=== PATIENT | female | born 1935 | race Caucasian/White ===

== ENCOUNTER 2019-02-09 12:37 | Inpatient (IN) | payer MEDICARE ==
[2019-02-09] MEDS ORDERED: Fentanyl 100 MCG/2 ML VIAL ONE ×5 (13:19→18:07)
[2019-02-09] MEDS ORDERED: Ketorolac Tromethamine 60 MG/2 ML VIAL ONE (13:19)
[2019-02-09 13:40] LABS: Hemoglobin 12.1 g/dL (12.0-16.0); Mean Corpuscular HGB CONC 33.2 g/dL (32.0-36.0); Mean Platelet Volume 8.6 fL (7.4-10.4); Platelet Count 137 thou/uL (130-400); RBC Distribution Width 11.9 % (11.5-14.5); Red Blood Cell (RBC) Count 3.47 mill/uL (4.20-5.40); White Blood Cell (WBC) Count 10.6 thou/uL (4.8-10.8)
[2019-02-09 13:41] LABS: #Basophils 0.1 thou/uL (0.0-0.2); #Eosinphils 0.1 thou/uL (0.0-0.7); #Lymphocytes 1.4 thou/uL (1.20-3.40); #Monocytes 0.4 thou/uL (0.11-0.59); #Neutrophils 8.6 thou/uL (1.40-6.50); %Basophils 0.5 % (0.0-1.0); %Eosinophils 1.2 % (0.0-10.0); %Lymphocytes 13.2 % (21.0-51.0); %Monocytes 3.9 % (0.0-10.0); %Neutrophils 81.2 % (42.0-75.0)
[2019-02-09 13:49] LABS: PTT 30.7 SEC (22.9-36.1); Prothrombin Time 13.3 SEC (12.0-14.7)
[2019-02-09 13:58] LABS: MDiff Complete? YES; Macrocytosis SLIGHT = 6-15 cells (100X) (0-5/hpf); Platelet Morphology Comment Appears Adequate
[2019-02-09 14:04] LABS: ALT (SGPT) 16 U/L (8-55); AST (SGOT) 18 U/L (5-34); Albumin 3.7 g/dL (3.4-4.8); Alkaline Phosphatase 81 U/L (40-150); Anion Gap 12 mmol/L (10-20); BUN (Urea Nitrogen) 20 mg/dL (9.8-20.1); Bilirubin, Total 0.4 mg/dL (0.2-1.2); Calc. Creatinine Clearance 0 mL/min (70-130); Carbon Dioxide 25 mmol/L (23-31); Chloride 106 mmol/L (98-107); Estimated GFR-MDRD 64; Globulin 2.7 g/dL (2.4-3.5); Glucose 100 mg/dL (83-110); Potassium 4.2 mmol/L (3.5-5.1); Protein, Total 6.4 g/dL (6.0-8.3); Sodium 139 mmol/L (136-145)
--- NOTE | 2019-02-09 14:21 | RAD ---
AP view of the pelvis INDICATION: Fall with left hip pain COMPARISON: None. FINDINGS: Bones: There is a subcapital left femoral neck fracture with mild varus malalignment. There is mild m edial displacement of the femoral head fracture component. There is diffuse osteopenia. Hips: There is mild osteoarthrosis of the left and right hip SI joints and symphysis pubis: Normal appearing. Intrapelvic contents: Within normal limits. IMPRESSION: Left subcapital femoral neck fracture with mild displacement
--- NOTE | 2019-02-09 14:22 | RAD ---
Radiograph left hip 2 views: DATE: 02/09/2019 Time: 1:36 PM HISTORY: 83-year-old female with traumatic left hip pain after fall FINDINGS: There is a subcapital femoral neck fracture with at least half bone width superior lateral displaceme nt of distal fragment. No dislocation. IMPRESSION: Acute, traumatic, displaced subcapital left femoral neck fracture.
[2019-02-09] MEDS ORDERED: CEFAZOLIN 2 GM in Premix Bag 1 BAG IVPB SCH (15:00)
[2019-02-09] MEDS ORDERED: Neomycin-Polymyxin 1 ML AMP ONE (15:13)
[2019-02-09] MEDS ORDERED: Phenylephrine HCL 10 MG/ML VIAL ONE (15:30)
--- NOTE | 2019-02-09 15:52 | RAD ---
LEFT FINGER TWO VIEWS: 02/09/19 HISTORY: Left finger pain. FINDINGS/IMPRESSION: Degenerative changes are seen in the PIP and DIP joints. No fracture, dislocation, or bony destructio n is identified. POS: [facility]
--- NOTE | 2019-02-09 16:30 | HP ---
REQUESTING PHYSICIAN: Dr. Lucero. ATTENDING SURGEON: Dr. Palencia. CONSULTATIONS: Orthopedics, Dr. Blue. 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 She denied loss of consciousness. She was brought to the emergency department, where she underwent evaluation and examination and was noted to have a left hip fracture, at which time we were asked to evaluate the patient for admission and obtain Orthopedic consultations. ALLERGIES: NONE. CURRENT MEDICATIONS: Propranolol, carvedilol, benazepril, duloxetine, Catapres, fentanyl patch, and Vicodin. 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 PAST SURGICAL HISTORY: Appendectomy, cholecystectomy, and mastectomy on the right. SOCIAL HISTORY: The patient smokes approximately half a pack of cigarettes per day. Denies drug use. Rare alcohol use. REVIEW OF SYSTEMS: A 10-point review of systems is negative as otherwise stated. PHYSICAL EXAMINATION: VITAL SIGNS: Blood pressure 161/79, heart rate 58, respirations 17, oxygen saturation 99% on 2 L via nasal cannula, and temperature is 97.8. GENERAL: The patient is resting comfortably in bed. She is awake, alert, and oriented x3. [place] Coma Scale is 15. HEENT: Head is normocephalic. Eyes, extraocular motion intact. PERRLA bilaterally. Ears are atraumatic without discharge. Nose is atraumatic without discharge. Oropharynx is clear. NECK: Nontender. Trachea is midline. No JVD. CHEST: Clear to auscultation with good inspiratory and expiratory effort. HEART: Regular rate and rhythm. ABDOMEN: Soft, flat, and nontender with active bowel sounds. PELVIS: Stable with tenderness to palpation to the left hip consistent with her fracture. EXTREMITIES: Neurovascularly intact x4. LABORATORY FINDINGS: White blood cell count 10.6, hemoglobin 12.1, hematocrit 36.5, and platelets 137. Sodium 139, potassium 4.2, chloride 106, CO2 of 25, BUN 20, creatinine 0.85, and glucose 100. LFTs are unremarkable. Troponin is less than 0.010. PT 13, INR 1.0, and PTT 31. RADIOGRAPHIC REPORTS: AP pelvis shows a left subcapital femoral neck fracture with mild displacement, views of the left hip again show a left subcapital femoral neck fracture, views of the left index finger show multilevel joint arthritis. ASSESSMENT/PLAN: 1. Status post ground level fall. 2. Left subcapital hip fracture. 3. History of hypertension. 4. Chronic pain medication use. PLAN: Plan will be to admit the patient to the surgical floor. Currently, the plan is hopefully to take her to the operating room from the emergency department to undergo her operative intervention with Orthopedics. The patient will remain n.p.o., have pain management, pulmonary toilet, gastritis, mechanical VTE prophylaxis. Postoperatively, we will have her begin working with Physical and Occupational Therapy. The evaluation, examination, laboratory, and radiographic findings will be discussed with Dr. Palencia after this dictation. Job ID: [id number]
[2019-02-09] MEDS ORDERED: Ondansetron ODT 4 MG TAB PO PRN (17:21)
[2019-02-09] MEDS ORDERED: hydrALAZINE 20 MG/ML VIAL SLOW IVP PRN (17:21)
[2019-02-09] MEDS ORDERED: HYDROcodone/Acetaminophen 10/325 mg Tablet PO PRN ×2 (17:21)
[2019-02-09] MEDS ORDERED: Dextrose 50% Abboject 50 ML SYRINGE SLOW IVP PRN (17:21)
[2019-02-09] MEDS ORDERED: Ondansetron PF 4 MG/2 ML Vial IVP PRN (17:21)
[2019-02-09] MEDS ORDERED: Morphine 4 MG/ML VIAL SLOW IVP PRN (17:21)
[2019-02-09] MEDS ORDERED: Cyclobenzaprine 10 MG TAB PO PRN (17:21)
[2019-02-09] MEDS ORDERED: Morphine 2 MG/ML SYRINGE SLOW IVP PRN (17:21)
[2019-02-09] MEDS ORDERED: Dextrose 5% in Water 1,000 ML IV PRN (17:21)
[2019-02-09] MEDS ORDERED: Sodium Chloride 0.9% 1,000 ML IV SCH (17:21)
[2019-02-09] MEDS ORDERED: Lidocaine 1% PF 5 ML VIAL ONE (17:35)
[2019-02-09] MEDS ORDERED: Glycopyrrolate 0.2 MG/ML 5 ML SYRINGE ONE (17:35)
[2019-02-09] MEDS ORDERED: Rocuronium Bromide 10 MG/ML (10ML VIAL) ONE (17:35)
[2019-02-09] MEDS ORDERED: PROPOFOL 200 MG/20 ML VIAL ONE (17:35)
[2019-02-09] MEDS ORDERED: Promethazine HCl 25 MG/ML VIAL IM PRN (17:42)
[2019-02-09] MEDS ORDERED: Ondansetron HCl/PF 4 MG/2 ML Vial IVP PRN (17:42)
[2019-02-09] MEDS ORDERED: Promethazine HCl 25 MG/ML VIAL SLOW IVP PRN (17:42)
[2019-02-09] MEDS ORDERED: PACU-Morphine 4MG/ML VIAL SLOW IVP PRN (17:42)
[2019-02-09] MEDS ORDERED: HYDROmorphone 2 MG/ML VIAL SLOW IVP PRN (17:42)
[2019-02-09] MEDS ORDERED: Acetaminophen 500 MG TAB PO SCH (18:00)
--- NOTE | 2019-02-09 19:14 | RAD ---
AP VIEW OF THE PELVIS: 02/09/19 INDICATION: Status post hemiarthroplasty. COMPARISON: Prior exam dated 02/09/19 at 1:34 p.m. IMPRESSION: There has been interval placement of a left hip endoprosthesis. No additional fracture is evident. IMPRESSION: Left hip endoprosthesis. POS: [facility]
--- NOTE | 2019-02-09 19:15 | RAD ---
CROSS-TABLE LATERAL OF THE LEFT HIP: 02/09/19 INDICATION: Status post hemiarthroplasty. COMPARISON: Left hip radiograph dated 02/09/19. IMPRESSION: There has been interval placement of a left hip endoprosthesis. Prosthetic component projects in the expected position. POS: [facility]
[2019-02-09] MEDS: HYDROcodone/Acetaminophen 7.5/325 mg Tablet PO SCH (20:48)
[2019-02-09] MEDS: Ketorolac Tromethamine 30 MG/ML VIAL IVP SCH ×2 (20:52→23:40)
[2019-02-09] MEDS ORDERED: Carvedilol 25 MG TAB PO SCH (21:00)
[2019-02-09] MEDS ORDERED: fentaNYL 50 mcg/hour Patch TD SCH (21:00)
[2019-02-09] MEDS ORDERED: Famotidine 20 MG TAB PO SCH (21:00)
[2019-02-09] MEDS ORDERED: cloNIDine 0.3 MG TAB PO SCH (21:00)
--- NOTE | 2019-02-09 21:06 | CON ---
DATE OF CONSULTATION: 02/09/2019 CHIEF COMPLAINT: Left hip pain. HISTORY OF PRESENT ILLNESS: Ms. Remy is an 83-year-old female who has fallen. She lost her balance at home after she became dizzy. She landed on her left side. She denies loss of consciousness. She does not use a cane or walker. She was at her normal baseline health. She remains very active. She had immediate pain in the hip and was unable to ambulate. X-rays were obtained after arrival to the emergency department, which demonstrated a femoral neck fracture. IMAGES: X-rays of the left hip demonstrate a displaced acute left femoral neck fracture of the left femur. PAST MEDICAL HISTORY: Hypertension. PAST SURGICAL HISTORY: Mastectomy and cholecystectomy. ALLERGIES: NO KNOWN DRUG ALLERGIES. MEDICATIONS: The patient takes hypertension medication, otherwise no active medications. SOCIAL HISTORY: The patient denies tobacco, alcohol, or drug use. She lives independently near her family. FAMILY MEDICAL HISTORY: Noncontributory. PHYSICAL EXAMINATION: GENERAL: The patient is alert and oriented, in no apparent distress, breathing comfortably. ABDOMEN: Soft, nontender, nondistended. MUSCULOSKELETAL: The patient's left lower extremity has shortening and pain with motion. She is neurovascularly intact in the foot and ankle. She has a palpable pulse. No skin lacerations. Upper extremities are atraumatic. IMPRESSION: Left femoral neck fracture in an elderly female. PLAN: At this point, the patient will need to go to the operating room. We will plan for hemiarthroplasty of the left hip to restore the ability to mobilize and prevent complications of prolonged bedrest. Risks of surgery have been reviewed, which do include dislocation, nerve or vascular injury, pain, scarring, bleeding, and others. She will have preoperative antibiotics. She will have pain control. She will have DVT prophylaxis. N.p.o. until after surgery. Job ID: [id number]
--- NOTE | 2019-02-09 23:15 | OP ---
DATE OF PROCEDURE: 02/09/2019 PROCEDURE PERFORMED: Left hip hemiarthroplasty. PREOPERATIVE DIAGNOSIS: Left femoral neck fracture. POSTOPERATIVE DIAGNOSIS: Left femoral neck fracture. COMPLICATIONS: None. ESTIMATED BLOOD LOSS: 200 mL. DRAWING IN HAND: Tabby Randall PA-C IMPLANTS: DePuy basic press-fit stem size 7, size 45 bipolar shell with a +5 femoral head. INDICATIONS: Ms. Remy is an 83-year-old who fell and fractured the left femoral neck. She was indicated for hemiarthroplasty of the left hip to restore mobility and provide pain relief. Risks have been reviewed in detail. She elected to proceed with the operation. DESCRIPTION OF PROCEDURE: Ms. Remy was identified in the preoperative holding area. Her correct extremity was marked. She was carried to the operating room. She was positioned supine. General anesthesia was induced. A multidisciplinary time-out was performed. The left lower extremity was prepped and draped in sterile fashion. We began the procedure with a posterior approach to the hip. We dissected down through the subcutaneous tissues to the fascia, which was opened. This allowed exposure of the short external rotators of the hip. These were subperiosteally divided from the proximal femur. At this point, we exposed the underlying hip joint capsule. This was incised. We then removed the broken femoral head and neck fragments. We performed a new osteotomy of the femoral neck. We then proceeded to prepare the femoral canal. We used an rasp to enter the canal. We then lateralized. Next, we rasped up to a size 7. We then broached from a size 3 to a size 7. This gave a good fit. We trialed on our size 3 broach. A +5 femoral head was appropriate for length. We removed our trial components. We placed our final components. We again reduced the hip. Again, with full range of motion, the patient had a stable hip with equal leg lengths. We thoroughly irrigated with copious lavage. We then closed with #5 Ethibond suture in the posterior capsule and piriformis tendon. This was followed by fascial closure and layered closure. A sterile dressing was applied. The patient was taken to the recovery room in good condition at that point without complication. Job ID: [id number]
[2019-02-09] MEDS: CEFAZOLIN 2 GM in Premix Bag 1 BAG IVPB SCH (23:38)
[2019-02-09] MEDS: Acetaminophen 325 MG TAB PO SCH (23:38)
--- NOTE | 2019-02-10 00:30 | PRG ---
DATE OF SERVICE: 02/09/2019 SUBJECTIVE: I was seen Ms. Remy, 83-year-old female on today evening round.The patient is status post ground level fall with left hip fracture with history of hypertension and arthritis. The patient just come back from the OR with left hip fracture ORIF. The patient reports pain from the left hip 6/10 to 7/10. No sign of acute respiratory distress. The patient is alert and awake. Vital signs stable. The patient reports she has been using [place] 7.5 mg t.i.d. and fentanyl 50 every 72 hours. We also reconcile all of her home medication including hypertension medication, and pain medication. PLAN: To put back on a home p.o. med and continue to follow up with blood pressure and pain control. The patient will be working with PT/OT tomorrow, placement in rehabilitation facility will be initiated. Job ID: [id number] MTDD
[2019-02-10] MEDS ORDERED: Carvedilol 25 MG TAB PO SCH ×2 (00:36→09:00)
[2019-02-10] MEDS ORDERED: Sodium Chloride 0.9% 500 ML IVPB SCH (01:00)
[2019-02-10 01:48] VITALS: BMI 25.9
[2019-02-10] MEDS: Ketorolac Tromethamine 30 MG/ML VIAL IVP SCH (05:51)
[2019-02-10] MEDS: Acetaminophen 325 MG TAB PO SCH ×2 (05:51→13:14)
[2019-02-10] MEDS: CEFAZOLIN 2 GM in Premix Bag 1 BAG IVPB SCH (06:47)
[2019-02-10 06:57] LABS: Anion Gap 10 mmol/L (10-20); BUN (Urea Nitrogen) 19 mg/dL (9.8-20.1); Calc. Creatinine Clearance 55 mL/min (70-130); Calcium 7.9 mg/dL (7.8-10.44); Carbon Dioxide 24 mmol/L (23-31); Chloride 106 mmol/L (98-107); Estimated GFR-MDRD 66; Glucose 100 mg/dL (83-110); Magnesium 1.7 mg/dL (1.6-2.6); Potassium 4.1 mmol/L (3.5-5.1); Sodium 136 mmol/L (136-145)
[2019-02-10] MEDS ORDERED: Hydrocortisone Sod Succ/PF 100 mg/2 ml Vial IVP SCH (07:00)
[2019-02-10] MEDS ORDERED: Ibuprofen 600 MG TAB PO PRN (08:12)
[2019-02-10 08:38] LABS: #Eosinphils 0.1 thou/uL (0.0-0.7); #Lymphocytes 1.2 thou/uL (1.20-3.40); #Monocytes 0.6 thou/uL (0.11-0.59); #Neutrophils 5.1 thou/uL (1.40-6.50); %Basophils 0.3 % (0.0-1.0); %Eosinophils 1.1 % (0.0-10.0); %Lymphocytes 17.3 % (21.0-51.0); %Monocytes 8.4 % (0.0-10.0); %Neutrophils 72.9 % (42.0-75.0); Hemoglobin 9.1 g/dL (12.0-16.0); MDiff Complete? YES; Mean Corpuscular HGB CONC 33.2 g/dL (32.0-36.0); Mean Corpuscular Hemoglobin 34.5 pg (27.0-31.0); Mean Platelet Volume 8.7 fL (7.4-10.4); Platelet Count 103 thou/uL (130-400); Platelet Morphology Comment Appears Decreased; Polychromasia SLIGHT = 2-3 cells (100X) (0-2/hpf); RBC Distribution Width 11.8 % (11.5-14.5); Red Blood Cell (RBC) Count 2.65 mill/uL (4.20-5.40)
[2019-02-10] MEDS: DULoxetine 30 MG CAP PO SCH (08:47)
[2019-02-10] MEDS: cloNIDine 0.3 MG TAB PO SCH ×2 (08:47→23:06)
[2019-02-10] MEDS: Carvedilol 25 MG TAB PO SCH ×2 (08:48→21:02)
[2019-02-10] MEDS: Lisinopril 20 MG TAB PO SCH (08:49)
[2019-02-10] MEDS: HYDROcodone/Acetaminophen 7.5/325 mg Tablet PO SCH ×3 (08:56→21:02)
[2019-02-10] MEDS ORDERED: DULoxetine 60 MG CAP PO SCH (09:00)
[2019-02-10] MEDS ORDERED: Lisinopril 20 MG TAB PO SCH (09:00)
[2019-02-10] MEDS ORDERED: fentaNYL 50 mcg/hour Patch TD SCH (09:00)
[2019-02-10] MEDS: Magnesium 2 GM/50 ML 2 GM in Premix Bag 1 BAG IVPB SCH ×2 (11:15→11:17)
--- NOTE | 2019-02-10 13:08 | PRG ---
DATE OF SERVICE: 02/10/2019 This is Nixon Reynolds PA-C dictating a report for Denilson Palencia DO. SUBJECTIVE: The patient is hospital day 2 postop day 1, status post ground level fall, which the patient sustained a left femoral neck fracture yesterday. She was able to undergo her operative procedure, specifically a left hip hemiarthroplasty, which she has tolerated well. Overnight, she had no issues. This morning, she is tolerating a diet and she has begun working with Physical and Occupational Therapy. The patient is a long-term chronic pain medication user and we resumed her base regimen and added some additional pain medications to help with her acute injury. OBJECTIVE: VITAL SIGNS: Temperature is 98.9, heart rate 66, blood pressure 119/71, respirations 16, oxygen saturation 92% on room air. GENERAL: The patient is resting comfortably, sitting at the side of bed. She is working with a therapist. At the time of our visit she is awake, alert, and oriented x3. [place] Coma Scale is 15. HEENT: Unremarkable. LUNGS: Clear to auscultation with good inspiratory and expiratory effort. HEART: Regular rate and rhythm. ABDOMEN: Soft, flat, nontender with active bowel sounds. EXTREMITIES: Neurovascularly intact x4. Postop dressing is clean, dry, and intact. LABORATORY FINDINGS: White blood cell count 7.0, hemoglobin 9.1, hematocrit 27.6, platelets 103. Sodium 136, potassium 4.1, chloride 106, CO2 of 24, BUN 19, creatinine 0.83, glucose 100, magnesium 1.7, phosphorus 4.0, cortisol is 15.2. There are no radiographs reviewed this morning. ASSESSMENT/PLAN: 1. Status post ground level fall. 2. Status post left femoral neck fracture, status post left hip hemiarthroplasty. 3. History of chronic pain medication use. 4. History of hypertension. PLAN: Plan will be to continue supportive care, physical and occupational therapy and work on placement with the patient, case workers and family. The patient was evaluated this morning with Dr. Palencia during rounds. Job ID: [id number]
[2019-02-10] MEDS ORDERED: Acetaminophen 500 MG TAB PO PRN (16:09)
[2019-02-10] MEDS ORDERED: HYDROcodone/Acetaminophen 7.5/325 mg Tablet PO PRN (16:11)
[2019-02-10] MEDS ORDERED: cloNIDine 0.3 MG TAB PO PRN (22:26)
--- NOTE | 2019-02-11 00:27 | PRG ---
DATE OF SERVICE: 02/10/2019 SUBJECTIVE: Ms. Remy is an 83-year-old female with status post ground level fall. She sustained left femur neck fracture, status post left hip hemiarthroplasty day 1. The patient reports doing better. Last night, she developed hypotensive , resolved after normal saline bolus and hydrocortisone IV. The patient's pain is well controlled. Blood pressure is trending up, so we will put back her home blood pressure medication. The patient reports using clonidine p.r.n. at home, half of dose, which means 0.15 mg b.i.d. p.r.n. The patient is able to work with PT/OT today. She was able to stand up and walk a few steps. Her urine is adequate and plan to continue supportive care. Continue PT and OT. The patient will be planned on placement in rehabilitation facility. Job ID: [id number] MTDD
[2019-02-11] MEDS ORDERED: Enoxaparin Sodium 40 MG/0.4 ML SYRINGE SC SCH (09:00)
[2019-02-11] MEDS ORDERED: Polyethylene Glycol 3350 17 GM Packet PO SCH (09:00)
[2019-02-11] MEDS ORDERED: Senokot S 8.6-50 MG TAB PO SCH (09:00)
[2019-02-11] MEDS: DULoxetine 30 MG CAP PO SCH (09:02)
[2019-02-11] MEDS: Lisinopril 20 MG TAB PO SCH (09:03)
[2019-02-11] MEDS: Carvedilol 25 MG TAB PO SCH (09:03)
[2019-02-11] MEDS: HYDROcodone/Acetaminophen 7.5/325 mg Tablet PO SCH ×2 (09:04→15:39)
[2019-02-11] MEDS ORDERED: Melatonin 3 MG TAB PO PRN (09:41)
--- NOTE | 2019-02-11 12:37 | PRG ---
DATE OF SERVICE: 02/11/2019 An 83-year-old female, status post ground level fall after spinning quickly and snagging her foot on something. She is postoperative day #2 for repair of her left hip fracture. SUBJECTIVE: This patient reports her pain is generally well controlled after her left hip hemiarthroplasty. She did become hypotensive overnight and received a bolus and a dose of IV hydrocortisone, which resolved her hypotension. She was found to be hypertensive this morning until her home blood pressure medications were started. Otherwise, she complains of trouble sleeping and is agreeable to taking melatonin. OBJECTIVE: VITAL SIGNS: Temperature 98.3, pulse 71, respirations 18, O2 saturation 95% on room air, blood pressure 176/75. GENERAL: Well appearing, in no acute distress. CARDIAC: Appears well-perfused. RESPIRATORY: Nonlabored breathing. No respiratory distress. ABDOMEN: Nondistended. EXTREMITIES: Neurovascularly intact. LABORATORY DATA: No new labs for review today. ASSESSMENT: 1. Status post ground level fall. 2. Status post left femoral neck fracture, status post left hip hemiarthroplasty. 3. History of chronic pain medication use. 4. History of hypertension. PLAN: We will continue supportive care. PT and OT. We prescribed melatonin 3 mg to help the patient sleep tonight. The patient also is on VTE prophylaxis with Lovenox. Clonidine was started for her hypertension, which she has not yet received. Her home carvedilol has been restarted. She has been given a bowel regimen as she has not had a bowel movement. This patient was seen, examined, and discussed with Dr. Palencia, the attending physician, who agrees with the assessment and plan. Job ID: [id number] [facility]
[2019-02-11 15:05] VITALS: BP 171/68; TEMP 98.8
--- NOTE | 2019-02-12 14:01 | DIS ---
DATE OF ADMISSION: 02/09/2019 DATE OF DISCHARGE: 02/11/2019 ADMISSION DIAGNOSES: 1. Status post ground level fall. 2. Left subcapital hip fracture. 3. History of hypertension. 4. Chronic pain medication use. CONSULTATIONS: Orthopedics, Dr. Blue. PROCEDURE: Left hip hemiarthroplasty. 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 She was brought to the emergency department, where she underwent evaluation and examination and was noted to have the above injury. The patient was able to undergo her operative procedure with Orthopedics that day and she tolerated it well. She would begin working with Physical and Occupational Therapy and will be eventually discharged to inpatient rehab facility. At the time of discharge, the patient was working with Physical and Occupational Therapy. Her pain was controlled. She was tolerating a diet. She will follow up with Dr. Blue in 2 to 3 weeks, or sooner as needed. The patient may follow up with the [facility]uma [facility] as needed. Job ID: [id number]
--- NOTE | 2019-02-14 01:02 | EKG ---
Test Reason : Blood Pressure : / mmHG Vent. Rate : 057 BPM Atrial Rate : 057 BPM P-R Int : 152 ms QRS Dur : 078 ms QT Int : 478 ms P-R-T Axes : 066 014 055 degrees QTc Int : 465 ms Sinus bradycardia Junctional ST depression, probably normal Borderline ECG Confirmed by KRISTEN TINEO ([id number]), society editor MINI JOHNSON ([id number]) on 02/14/2019 1:02:07 AM Referred By: Confirmed By:KRISTEN TINEO
== END 2019-02-11 15:50 | DRG 470 ==
LOC: ERS 12:37 → SDC 15:39 → SURG A 19:03
PROVIDERS: ADMIT Surgery; ATTEND Surgery
PROC: 0SRS0JA Replacement of Left Hip Joint, Femoral Surface with Synthetic Substitute, Uncemented, Open Approach (ICD-10-PCS; principal; 2019-02-09)
DX: S72.002A Fracture of unspecified part of neck of left femur, initial encounter for closed fracture (principal); W18.39XA Other fall on same level, initial encounter; I10 Essential (primary) hypertension; F17.210 Nicotine dependence, cigarettes, uncomplicated; G89.29 Other chronic pain; I95.9 Hypotension, unspecified; Y92.009 Unspecified place in unspecified non-institutional (private) residence as the place of occurrence of the external cause; Z90.49 Acquired absence of other specified parts of digestive tract; Z90.11 Acquired absence of right breast and nipple
CPT/HCPCS: 36415; 36416; 72170; 80048; 80053; 82533; 83735; 84100; 84484; 85025; 85610; 85730; 93005; 94760; 96374; 96375; 96376; G0390; J0360; J0690; J1650; J1720; J1885; J2001; J2270; J2370; J2704; J3010; J3475; J7050